=== PATIENT | female | born 1940 | race Caucasian/White ===

== ENCOUNTER 2025-03-02 03:23 | Emergency (ER) | payer MEDICARE, BC | END 2025-03-02 06:40 | LOC: FB.ED 03:23 | DX: S40.011A Contusion of right shoulder, initial encounter (principal); I10 Essential (primary) hypertension; Z91.048 Other nonmedicinal substance allergy status; Z88.0 Allergy status to penicillin; Z88.5 Allergy status to narcotic agent; Z91.040 Latex allergy status; Z87.891 Personal history of nicotine dependence; W18.39XA Other fall on same level, initial encounter; Y93.89 Activity, other specified | CPT/HCPCS: 73030-RT; 99283 ==